=== PATIENT | female | born 1950 | race Caucasian/White ===

== ENCOUNTER → 2017-08-29 | Outpatient (CLI) | payer OTHER | END | disposition home or self-care (01) | LOC: MAMO-SONO 09:45 | DX: Z12.31 Encounter for screening mammogram for malignant neoplasm of breast (principal); Z87.898 Personal history of other specified conditions; R10.11 Right upper quadrant pain; R07.89 Other chest pain ==

== ENCOUNTER 2017-09-14 13:09 | Outpatient (CLI) | payer OTHER | END 2017-09-14 14:00 | disposition home or self-care (01) | LOC: NUCLEAR 13:09 | DX: M81.0 Age-related osteoporosis without current pathological fracture (principal); Z13.820 Encounter for screening for osteoporosis ==

== ENCOUNTER 2017-12-13 13:42 | Outpatient (CLI) | payer OTHER ==
[~2017-12-13 13:42] MED LIST: CYCLOBENZAPRINE10 MG PO; DOLOGESIC 500-1 EACH PO; NABUMETONE750 MG PO
== END 2017-12-13 13:48 | disposition home or self-care (01) ==
LOC: RAD 13:42
DX: M54.2 Cervicalgia (principal); M54.5 Low back pain

== ENCOUNTER 2018-03-15 14:06 | Outpatient (CLI) | payer OTHER ==
[~2018-03-15 14:06] MED LIST changes: +DOLOGESIC-DF 51 EACH PO
== END 2018-03-15 14:14 | disposition home or self-care (01) ==
LOC: LAB 14:06
DX: R42 Dizziness and giddiness (principal); Z51.81 Encounter for therapeutic drug level monitoring

== ENCOUNTER 2018-03-16 11:16 | Outpatient (CLI) | payer OTHER | END 2018-03-16 16:47 | disposition home or self-care (01) | LOC: MRI 11:16 | DX: H91.8X1 Other specified hearing loss, right ear (principal); R42 Dizziness and giddiness | CPT/HCPCS: 70552; A9579 ==

== ENCOUNTER 2018-03-28 10:53 | Outpatient (CLI) | payer OTHER | END 2018-03-28 11:02 | disposition home or self-care (01) | LOC: LAB 10:53 | DX: J45.41 Moderate persistent asthma with (acute) exacerbation (principal); R06.02 Shortness of breath ==

== ENCOUNTER 2018-03-28 11:47 | Outpatient (CLI) | payer OTHER | END 2018-03-28 14:02 | disposition home or self-care (01) | LOC: RAD 11:47 | DX: R05 Cough (principal); J45.41 Moderate persistent asthma with (acute) exacerbation ==

== ENCOUNTER → 2018-07-12 | Outpatient (CLI) | payer OTHER ==
[~2018-07-12] MED LIST changes: +PRILOSEC OTC20 MG PO; +TIZANIDINE HCL2 MG PO
== END | disposition home or self-care (01) ==
LOC: WOUND MED 08:13
DX: L98.411 Non-pressure chronic ulcer of buttock limited to breakdown of skin (principal)
CPT/HCPCS: 11042; G0463; A4554; A4930; A6216; A6219

== ENCOUNTER → 2018-07-19 | Outpatient (CLI) | payer OTHER | END | disposition home or self-care (01) | LOC: WOUND MED 08:10 | DX: L98.411 Non-pressure chronic ulcer of buttock limited to breakdown of skin (principal) | CPT/HCPCS: 11042; A4554; A4930; A6216; A6219 ==

== ENCOUNTER → 2018-07-26 | Outpatient (CLI) | payer OTHER | END | disposition home or self-care (01) | LOC: WOUND MED 08:17 | DX: L98.411 Non-pressure chronic ulcer of buttock limited to breakdown of skin (principal) | CPT/HCPCS: 11042; A4554; A4930; A6216; A6219 ==

== ENCOUNTER → 2018-08-02 | Outpatient (CLI) | payer OTHER | END | disposition home or self-care (01) | LOC: WOUND MED 09:00 | DX: L98.411 Non-pressure chronic ulcer of buttock limited to breakdown of skin (principal) | CPT/HCPCS: 11042; A4554; A4930; A6196; A6216; A6219 ==

== ENCOUNTER → 2018-08-09 | Outpatient (CLI) | payer OTHER | END | disposition home or self-care (01) | LOC: WOUND MED 08:31 | DX: L98.412 Non-pressure chronic ulcer of buttock with fat layer exposed (principal) | CPT/HCPCS: 11042; A4554; A4930; A6216; A6219 ==

== ENCOUNTER → 2018-08-16 | Outpatient (CLI) | payer OTHER | END | disposition home or self-care (01) | LOC: WOUND MED 07:29 | DX: L98.412 Non-pressure chronic ulcer of buttock with fat layer exposed (principal) | CPT/HCPCS: 11042; A4554; A4930; A6216; A6219 ==

== ENCOUNTER → 2018-08-30 | Outpatient (CLI) | payer OTHER | END | disposition home or self-care (01) | LOC: WOUND MED 07:56 | DX: L98.411 Non-pressure chronic ulcer of buttock limited to breakdown of skin (principal) | CPT/HCPCS: G0463; A4554; A4930; A6216 ==

== ENCOUNTER 2018-11-15 13:23 | Outpatient (CLI) | payer OTHER | END 2018-11-15 13:39 | disposition home or self-care (01) | LOC: MAMO-SONO 13:23 | DX: Z12.31 Encounter for screening mammogram for malignant neoplasm of breast (principal); Z87.898 Personal history of other specified conditions; N60.11 Diffuse cystic mastopathy of right breast; N60.12 Diffuse cystic mastopathy of left breast ==

== ENCOUNTER → 2019-06-28 | Outpatient (CLI) | payer OTHER | END | disposition home or self-care (01) | LOC: WOUND MED 07:50 | DX: L03.011 Cellulitis of right finger (principal) | CPT/HCPCS: G0463; A4554; A4930; A6216 ==

== ENCOUNTER 2019-07-12 08:12 | Outpatient (CLI) | payer OTHER | END 2019-07-12 10:00 | disposition home or self-care (01) | LOC: WOUND MED 08:12 | DX: L03.011 Cellulitis of right finger (principal) | CPT/HCPCS: 11042; A4554; A4930; A6196; A6216; A6219 ==

== ENCOUNTER 2021-02-11 08:14 | Outpatient (CLI) | payer OTHER | END 2021-02-11 08:27 | disposition home or self-care (01) | LOC: MAMO-SONO 08:14 | PROVIDERS: ATTEND Internal Medicine | DX: N64.4 Mastodynia (principal); Z12.31 Encounter for screening mammogram for malignant neoplasm of breast; Z80.8 Family history of malignant neoplasm of other organs or systems ==

== ENCOUNTER 2021-10-27 15:10 | Outpatient (CLI) | payer OTHER | END 2021-10-27 15:18 | disposition home or self-care (01) | LOC: RAD 15:10 | PROVIDERS: ATTEND Physical Medicine & Rehabilitation | DX: M25.512 Pain in left shoulder (principal); S40.012A Contusion of left shoulder, initial encounter; S50.02XA Contusion of left elbow, initial encounter; S60.222A Contusion of left hand, initial encounter; S80.01XA Contusion of right knee, initial encounter ==

== ENCOUNTER 2022-06-09 10:34 | Emergency (ER) | payer OTHER ==
[~2022-06-09] VITALS: Ht 152.4 cm; Wt 95.3 kg
[2022-06-09] MEDS ORDERED: SINGULAIR4 MG PO (10:48)
[2022-06-09] MEDS ORDERED: LIPITOR40 M1 PO (10:48)
[2022-06-09] MEDS ORDERED: ENALAPRIL MALEA10 MG PO (10:48)
[2022-06-09] MEDS ORDERED: TOPROL XL25 M1 (10:49)
[2022-06-09] MEDS ORDERED: ZOLOFT100 MG PO (10:50)
[2022-06-09] MEDS ORDERED: LOREEV XR2 MG PO (10:50)
[2022-06-09] MEDS ORDERED: PROAIR RESPICL90 MCG (10:51)
== END 2022-06-09 14:37 | disposition home or self-care (01) ==
LOC: ER 10:34
DX: J45.909 Unspecified asthma, uncomplicated (principal); Z20.822 Contact with and (suspected) exposure to COVID-19

== ENCOUNTER 2023-01-13 15:03 | Outpatient (CLI) | payer OTHER ==
[~2023-01-13 15:03] MED LIST changes: +ENALAPRIL MALEA10 MG PO; +LIPITOR40 M1 PO; +LOREEV XR2 MG PO; +PROAIR RESPICL90 MCG; +SINGULAIR4 MG PO; +TOPROL XL25 M1; +ZOLOFT100 MG PO
== END 2023-01-13 15:11 | disposition home or self-care (01) ==
LOC: RAD 15:03
PROVIDERS: ATTEND Internal Medicine Pulmonary Disease
DX: J45.31 Mild persistent asthma with (acute) exacerbation (principal)